=== PATIENT | male | born 1960 | race Caucasian/White ===

== ENCOUNTER 2018-09-17 05:55 | Inpatient (IN) ==
[2018-09-11 12:13] LABS: Appearance,Urine CLEAR; Bilirubin,Urine NEG (NEG); Color,Urine YELLOW; Glucose,Urine (UA) NEGATIVE (NEG); Leukocyte Esterase,Urine NEG /uL (NEG); Protein,Urine NEG (NEG); Specific Gravity,Urine 1.023 (1.000-1.035); Urine Blood NEG mg/dL (<0.03); Urobilinogen,Urine NEG (NEG)
[2018-09-11 12:42] LABS: Basophils # (Auto) 0 K/mcL (0.0-0.3); Basophils % (Auto) 0.3 % (0.0-2.0); Eosinophils # (Auto) 0.2 K/mcL (0.0-0.7); Eosinophils % (Auto) 2.6 % (0.0-7.0); Granulocytes % (Auto) 61.9 % (38.0-78.0); Lymphocytes # (Auto) 1.7 K/mcL (1.5-4.8); Lymphocytes % (Auto) 25.1 % (15.5-49.0); Mean Corpuscular HGB Conc 32.8 g/dL (31.0-36.0); Monocytes # (Auto) 0.7 K/mcL (0.1-0.9); Monocytes % (Auto) 10.1 % (1.0-12.0); Platelet Count 218 K/mcL (140-440); RBC 5.27 M/mcL (4.50-5.90); Red Cell Distribution Width 13.2 % (11.5-14.5)
[2018-09-11 12:48] LABS: Blood Urea Nitrogen 18 mg/dl (6-20)
[2018-09-11 14:20] LABS: Estimated Average Glucose(eAG) 171 mg/dL; Hemoglobin A1C 7.6 % HGB (4.0-6.0)
[2018-09-17] MEDS ORDERED: oxyCODONE 10 MG TAB.ER.12H PO SCH (06:00)
[2018-09-17] MEDS ORDERED: PREGABALIN 75 MG CAPSULE PO SCH (06:00)
[2018-09-17] MEDS ORDERED: CELECOXIB 200 MG CAPSULE PO SCH (06:00)
[2018-09-17] MEDS ORDERED: ceFAZolin 3 GM in DEXTROSE 5% IN WATER 50 ML IV SCH (06:00)
[2018-09-17] MEDS ORDERED: HEPARIN 20,000 UNIT/ML VIAL IR ONE ×2 (09:28)
[2018-09-17] MEDS ORDERED: HEPARIN 10,000 UNIT/ML VIAL IR ONE (09:31)
[2018-09-17] MEDS ORDERED: LIDOCAINE HCL/PF 100 MG/5 ML SYRINGE IV ONE (10:10)
[2018-09-17] MEDS ORDERED: ONDANSETRON 4 MG/2 ML VIAL IV ONE (10:10)
[2018-09-17] MEDS ORDERED: PROPOFOL 200 MG/20 ML VIAL IV ONE (10:10)
[2018-09-17] MEDS ORDERED: fentaNYL 100 MCG/2 ML VIAL IV ONE (10:10)
[2018-09-17] MEDS ORDERED: MIDAZOLAM 5 MG/5 ML VIAL IV ONE (10:10)
[2018-09-17] MEDS ORDERED: DEXAMETHASONE 10 MG/ML VIAL IV ONE (10:10)
[2018-09-17] MEDS ORDERED: TRANEXAMIC ACID 1,000 MG/10 ML VIAL IV ONE (10:10)
[2018-09-17] MEDS ORDERED: GLYCOPYRROLATE 0.2 MG/ML VIAL IV ONE (10:10)
[2018-09-17] MEDS ORDERED: PHENYLEPHRINE 10 MG/ML VIAL IV ONE (10:10)
[2018-09-17] MEDS ORDERED: METHOCARBAMOL 1,000 MG/10 ML VIAL IV PRN (11:48)
[2018-09-17] MEDS ORDERED: ACETAMINOPHEN 1,000 MG/100 ML BOTTLE IV ONE (11:48)
[2018-09-17] MEDS ORDERED: FLUMAZENIL 0.1 MG/ML ML IV PRN (11:48)
[2018-09-17] MEDS ORDERED: MEPERIDINE 25 MG/ML SYRINGE IV PRN (11:48)
[2018-09-17] MEDS ORDERED: NALOXONE HCL 0.4 MG/ML VIAL IV PRN (11:48)
[2018-09-17] MEDS ORDERED: ONDANSETRON 4 MG/2 ML VIAL IV PRN ×2 (11:48→11:53)
[2018-09-17] MEDS ORDERED: LACTATED RINGERS 250 ML IV PRN (11:48)
[2018-09-17] MEDS ORDERED: IPRATROPIUM/ALBUTEROL 3 ML AMPUL.NEB NEB PRN (11:48)
[2018-09-17] MEDS ORDERED: KETOROLAC 30 MG/ML VIAL IV PRN (11:48)
[2018-09-17] MEDS ORDERED: BENZOCAINE/MENTHOL 1 LOZENGE PO PRN ×2 (11:48→11:53)
[2018-09-17] MEDS ORDERED: HYDROmorphone 2 MG/ML VIAL IV PRN (11:48)
[2018-09-17] MEDS ORDERED: TRANEXAMIC ACID 1,000 MG/10 ML VIAL IV SCH (11:53)
[2018-09-17] MEDS ORDERED: DEXTROSE 31 GM ORAL.SUSP PO PRN (11:53)
[2018-09-17] MEDS ORDERED: MAGNESIUM HYDROXIDE 30 ML ORAL.SUSP PO PRN (11:53)
[2018-09-17] MEDS ORDERED: DEXTROSE 50% 50 ML VIAL IV PRN (11:53)
[2018-09-17] MEDS ORDERED: POLYETHYLENE GLYCOL 3350 17 GM PACKET PO PRN (11:53)
[2018-09-17] MEDS ORDERED: FLEETS ADULT ENEMA PR PRN (11:53)
[2018-09-17] MEDS ORDERED: BISACODYL 10 MG SUPP.RECT PR PRN (11:53)
--- NOTE | 2018-09-17 11:53 | Brief Operative Note ---
Date of procedure: 09/17/18 Pre-op diagnosis: R hip severe DJD Post-op diagnosis: same Procedure: Right anterior total hip arthroplasty Grafts/Implants: Yes (Depuy Actis HO 6 stem, +1.5 36 delta head, 54 cup, neutral altrx liner) Anesthesia: spinal, GLMA Findings: severe arthritis Complications: none Surgeon: Armond Hernandez Clinical Informatics Physician: Lorenzo Dupree Estimated blood loss (cc): 350 Specimens Removed/Pathology: none sent Condition: stable Disposition: PACU
[2018-09-17] MEDS ORDERED: DIAZEPAM 5 MG TABLET PO PRN (11:57)
[2018-09-17] MEDS ORDERED: LACTATED RINGERS 1,000 ML IV SCH (12:00)
[2018-09-17] MEDS: fentaNYL 100 MCG/2 ML VIAL IV PRN ×3 (12:30→12:37)
[2018-09-17] MEDS: HYDROmorphone 2 MG/ML VIAL IV PRN ×3 (12:39→17:44)
[2018-09-17] MEDS ORDERED: LORazepam 2 MG/ML VIAL IV ONE (12:51)
--- NOTE | 2018-09-17 13:05 | Operative Note ---
DATE OF OPERATION: 09/17/2018 PREOPERATIVE DIAGNOSIS: Right hip severe osteoarthritis. POSTOPERATIVE DIAGNOSIS: Right hip severe osteoarthritis. PROCEDURE PERFORMED: Right anterior total hip arthroplasty placing a DePuy Actis size 6 high offset femoral stem, a +1.5, 36 mm delta ceramic head ball, 54 Lemmon cup with a neutral AltrX liner. SURGEON: Armond Hernandez MD COMPOSITE TECHNICIAN: Jaciel Dupree PA-C ANESTHESIA: Spinal plus general. DRAINS: None. SPECIMENS: Femoral head which was discarded. BLOOD LOSS: 350 mL COMPLICATIONS: None. POSTOPERATIVE CONDITION: Stable. INDICATIONS FOR SURGERY: This is a 57-year-old male who has had longstanding progressive worsening severe right hip pain. Radiographs showed severe [id number] osteoarthritis. FINDINGS AT SURGERY: As above. Post implantation showed excellent component position with leg length and offset baptist. PROCEDURE IN DETAIL: The patient was seen preoperatively. Informed consent was obtained after discussion of risks and benefits of surgery. Risks including, but not limited to, bleeding, possibly requiring transfusion; infection, possibly requiring implant removal, prolonged IV antibiotics; injury to nerves, blood vessels other surrounding structures; anesthetic risks; incomplete or no resolution of symptoms; leg length discrepancy; dislocation; fracture; DVT and pulmonary embolus risks; and the possibility of needing further revision joint surgery. He understood these risks and wished to proceed. Correct operative site was marked in preoperative holding and patient received spinal anesthesia. He was then taken to the operating room and LMA general given. He was carefully positioned on the fracture table and then the right hip and groin were carefully prepped and draped in normal sterile fashion. A timeout was performed verifying patient name, operative site, and plan. Ioban was used to cover all skin surfaces and a standard anterior approach incision was made with a scalpel through skin and subcutaneous tissue. Hemostasis was attained with Bovie cautery. We continued careful blunt dissection down on to the tensor fascia and then this was undermined circumferentially. IrriSept was irrigated and then a ring retractor was placed. Tensor fascia was incised in line with muscle fibers and then careful blunt dissection was taken medial to the muscle belly. Blunt cobra retractors were placed on the superior and inferior neck and then circumflex vessels were coagulated and cut and vastus fascia split distally. Anterior capsulectomy was performed. Traction was placed on the leg. We did capsule releases out towards the trochanter and a corkscrew was placed in the femoral head. Osteotome was used under fluoro to identify our approximate neck cut trajectory and then oscillating saw was used to make our neck cut. We also made a secondary cut closer to the corkscrew and then removed the napkin ring slice of bone to aid in dislocating the head. Once head was removed we exposed the acetabulum. Labrum was excised circumferentially. We then used a reamer under fluoro guidance to medialize to the teardrop. We increased reamer size and angle until a 53 got rim ream. We opened a 54 3-hole Lemmon cup. Using the joint point system and the [id number] we impacted the cup at approximately 40 degrees inclination and 25 degrees of anteversion. We did get good pressfit, so a center hole cover was placed. A curved osteotome was used to remove anterior impinging osteophyte off the acetabulum. We then placed a neutral AltrX liner and carefully aligned the tabs and impacted. We carefully verified all tabs were flush. We then removed traction from the leg. It was externally rotated, we released capsule around the medial neck and posterior neck and then the leg was extended and adducted. We used Bovie to release capsule out to the greater trochanter. Once we had adequate exposure, we used a box osteotome to gain canal entry. Rongeur was used to lateralize, awl was used to identify canal trajectory and then a rasp was used to lateralize further. We started broaching and went up to a size 5 stem which seated just at our neck cut. We went ahead and calcar planed and then used a high offset neck trial with a +1.5 head ball. Hip reduced easily. We checked x-ray to verify neutral pelvic rotation and then used joint point again to identify our leg lengths. It appeared with that setup that we were no mm of lengthening and under offset by 1 mm. Due to him being several millimeters short preoperatively, I wanted to lengthen him a little bit further without increasing offset so I went ahead and redislocated. We removed the 5 trial, went up to a 6. This did seat just above our neck. We went ahead and opened a 6 high offset stem. Femoral canal was irrigated with IrriSept, after a minute pulse lavaged with saline and then a stem was impacted. This did indeed hang up about 3 mm off our neck cut, so we went ahead and opened a 36 1.5 head ball. The stem was carefully cleaned and dried and the head ball was briskly impacted with the [id number]. The hip was reduced without excessive tension. Final fluoro images were saved and indeed we were about 3 mm long and 1 mm under offset. These images were saved and printed. We irrigated with IrriSept, after a minute pulse lavaged with saline. Running #1 Vicryl was used to close tensor fascia and then a ring retractor was removed. IrriSept was irrigated again. After a minute pulse lavage and then fat was tacked to fascia with Vicryl and then 2-0 Monocryl for subcutaneous and marilee for skin. Xeroform and sterile dressing were applied. The patient was awakened, extubated, and transferred to recovery in stable condition. BJB:dru Job ID: [id number] Doc ID: [id number] Armond Hernandez MD
--- NOTE | 2018-09-17 13:13 | XRay Report ---
CLINICAL INFORMATION: Post-op Total Hip COMPARISON: None. FINDINGS: Right total hip prostheses is anatomically aligned. No osseous abnormality. Both SI and left hip joints are normal. Moderate L4-5 and L5-S1 degenerative disc is noted. Soft tissue swelling over the surgical site seen as expected IMPRESSION: Right total hip prostheses is anatomically aligned Interpreted and Authenticated by: Shane Davidson 09/17/18
[2018-09-17] MEDS: 0.9 % SODIUM CHLORIDE 1,000 ML IV SCH ×2 (13:40→23:08)
--- NOTE | 2018-09-17 14:00 | XRay Report ---
CLINICAL INFORMATION: right hip arthroplasty COMPARISON: None. FINDINGS: Digital intraoperative images are submitted. Initial images show severe right-sided degeneration. Final images show right total hip prostheses in anatomic alignment. No osseous abnormality. IMPRESSION: Right total hip prostheses is anatomically aligned Interpreted and Authenticated by: Shane Davidson 09/17/18
[2018-09-17] MEDS: KETOROLAC 30 MG/ML VIAL IV PRN ×2 (14:18→20:49)
[2018-09-17] MEDS: 0.9 % SODIUM CHLORIDE 10 ML SYRINGE IV SCH ×2 (14:33→20:49)
[2018-09-17] MEDS: INSULIN LISPRO 1 UNIT/0.01 ML UNIT SQ SCH ×2 (15:22→20:55)
[2018-09-17] MEDS: oxyCODONE HCL 5 MG TABLET PO PRN ×3 (15:23→23:42)
[2018-09-17] MEDS: ceFAZolin 1 GM VIAL IV SCH (17:43)
[2018-09-17] MEDS: ASPIRIN 81 MG TAB.CHEW PO SCH (20:49)
[2018-09-17] MEDS: DOCUSATE SODIUM 100 MG CAPSULE PO SCH (20:49)
[2018-09-17] MEDS ORDERED: SENNOSIDES 1 TABLET PO SCH (21:00)
[2018-09-18] MEDS: ceFAZolin 1 GM VIAL IV SCH (00:24)
[2018-09-18] MEDS: oxyCODONE HCL 5 MG TABLET PO PRN ×2 (04:20→08:21)
[2018-09-18] MEDS: 0.9 % SODIUM CHLORIDE 1,000 ML IV SCH (04:26)
[2018-09-18] MEDS: 0.9 % SODIUM CHLORIDE 10 ML SYRINGE IV SCH (04:32)
--- NOTE | 2018-09-18 07:44 | Discharge Summary ---
Providers - Providers Patient information: Note initiated : 09/18/18 at 7:42 am Service Date, if different from initiated Date: [] Patient: Dat Wallis 57 y/o M admitted on 09/17/18 for Right Total Hip Arthroplasty Anterior. Chief Complaint: [] Discharge date: 09/18/18 Hospitalization Hospital course: Pt was admitted for a R direct anterior ASAEL. Pt underwent the procedure on the day of admission. Pt spent one night on the floor for IV pain meds, IV abx, and PT. Pt discharged post-op day 1. Will take ASA for DVT prophylaxis. Will f/u in 2 weeks. Discharge diagnosis: R hip OA Exam - Exam Clean and dry: Yes Weight bearing status: as tolerated Ortho Discharge - ASAEL - Patient Instructions Diet: Regular Diet Activity: activity as tolerated Total Hip Protocol: Follow activity instructions as provided by Physical Therapy. Dressing Care: May shower in 2 days - Follow Up Plan Follow Up Appointments: Lorenzo Dupree PA-C [Physician Pressing Machine Tender] - 10/02/18 10:10 am Disposition: Home, Self-Care Prognosis: Good Rehab Potential: Good Overall status at discharge: patient is progressing back to baseline - Orders For Discharge Prescriptions: Aspirin 81 mg PO BID #60 tab.chew HYDROcodone/ACETAMINOPHEN [[place] 10-325 Tablet] 1 - 2 each PO Q6 #75 tab Pending Studies Resuscitation Status Full Code Diet Consistent Carbohydrate Diet Start SatSeptember 17 1154 Aspirin (Aspirin) 81 mg PO BID [facility] Last Admin: 09/17/18 20:49 Dose: 81 mg Documented by: ELSI Diagnostic Test (Pha) (Accu-Chek) 1 each FS ACHS [facility] Last Admin: 09/17/18 20:51 Dose: 1 each Documented by: Admin: 09/17/18 15:24 Dose: 1 each Documented by: RUBINA Docusate Sodium (Colace) 100 mg PO BID [facility] Last Admin: 09/17/18 20:49 Dose: 100 mg Documented by: ELSI Hydromorphone HCl (Dilaudid) 0 mg IV Q2HP PRN PRN Reason: PAIN LEVEL > 6 Last Admin: 09/17/18 17:44 Dose: 1 mg Documented by: Admin: 09/17/18 13:03 Dose: 0.5 mg Documented by: Admin: 09/17/18 12:39 Dose: 0.5 mg Documented by: GIGI Sodium Chloride (Sodium Chloride 0.9%) 1,000 mls @ 125 mls/hr IV .Q8H ELANA Last Admin: 09/18/18 04:26 Dose: Not Given Documented by: Admin: 09/17/18 23:08 Dose: Not Given Documented by: Infusion: 09/17/18 22:20 Dose: 0 mls/hr Documented by: Admin: 09/17/18 13:40 Dose: 125 mls/hr Documented by: RUBINA Insulin Human Lispro (Humalog) 0 unit SQ ACHS [facility]; Protocol Last Admin: 09/17/18 20:55 Dose: 8 units Documented by: Admin: 09/17/18 15:22 Dose: 6 units Documented by: RUBINA Ketorolac Tromethamine (Toradol) 30 mg IV Q6HP PRN PRN Reason: Pain Stop: 09/19/18 11:55 Last Admin: 09/17/18 20:49 Dose: 30 mg Documented by: Admin: 09/17/18 14:18 Dose: 30 mg Documented by: [facility] Oxycodone HCl (Roxicodone) 0 mg PO Q4HP PRN PRN Reason: PAIN LEVEL 3-6 Last Admin: 09/18/18 04:20 Dose: 10 mg Documented by: Admin: 09/17/18 23:42 Dose: 10 mg Documented by: Admin: 09/17/18 19:27 Dose: 10 mg Documented by: Admin: 09/17/18 15:23 Dose: 10 mg Documented by: RUBINA Senna (Senokot) 2 tab PO HS ELANA Last Admin: 09/17/18 20:49 Dose: 2 tab Documented by: ELSI Sodium Chloride (Saline Flush) 10 ml IV Q8 ELANA Last Admin: 09/18/18 04:32 Dose: 10 ml Documented by: Admin: 09/17/18 20:49 Dose: Not Given Documented by: Admin: 09/17/18 14:33 Dose: Not Given Documented by: [email or web address] Shift Summary 09/18/18 04:39 Shift Summary by Sri Brush Patient alert and oriented x4. Medicated for right hip pain with Roxicodone 2 tabs x3 and Toradol IV x1 with good effect. IV on LFA saline locked. Patient eating and drinking well. Voided adequately. PVR 171 mls last night. Right hip dressing CDI. Ice pack applied. Ambulated in hallway 400 ft last night. BSL @ HS 263, given 8 units sliding scale insulin.Uses CPAP with O2 3L at night and 2l nasal cannula during the day. Sats 90-95%. VSS. Initialized on 09/18/18 04:39 - END OF NOTE
[2018-09-18] MEDS ORDERED: metFORMIN 500 MG TAB.XL.24H PO SCH (08:00)
[2018-09-18] MEDS: INSULIN LISPRO 1 UNIT/0.01 ML UNIT SQ SCH (08:00)
[2018-09-18] MEDS: ASPIRIN 81 MG TAB.CHEW PO SCH (08:20)
[2018-09-18] MEDS: DOCUSATE SODIUM 100 MG CAPSULE PO SCH (08:20)
[2018-09-18] MEDS ORDERED: LISINOPRIL 10 MG TABLET PO SCH (09:00)
[2018-09-18] MEDS ORDERED: FISH OIL 1,000 MG CAPSULE PO SCH (09:00)
[2018-09-18] MEDS ORDERED: FLAXSEED OIL 1000 MG PO SCH (09:00)
[2018-09-18] MEDS ORDERED: VITAMIN D3 1,000 UNIT TABLET PO SCH (09:00)
[2018-09-18] MEDS ORDERED: PSYLLIUM HUSK 6 GM PACKET PO SCH (09:00)
[2018-09-18] MEDS ORDERED: SIMVASTATIN 20 MG TABLET PO SCH (09:00)
[2018-09-18] MEDS ORDERED: GLUCOSAMINE/CHONDROITIN SULF A 1 CAP CAPSULE PO SCH (09:00)
== END 2018-09-18 10:55 | disposition home or self-care (01) | DRG 470 ==
LOC: MEDSUR 05:55
PROVIDERS: ADMIT Orthopaedic Surgery; ATTEND Orthopaedic Surgery